=== PATIENT | female | born 1985 | race Caucasian/White ===

== ENCOUNTER → 2016-09-14 | Outpatient (CLI) | payer OTHER ==
[~2016-09-14] MED LIST: LEXAPRO10 MG PO; MACROBID100 M1 PO; MOTRIN800 MG PO; PERCOCET 325 MG1 TA2 PO
== END | disposition home or self-care (01) ==
LOC: LAB 16:01
DX: R10.11 Right upper quadrant pain (principal)

== ENCOUNTER → 2016-09-30 | Outpatient (CLI) | payer OTHER | END | disposition home or self-care (01) | LOC: US 09-23 10:00 | DX: R10.11 Right upper quadrant pain (principal) ==

== ENCOUNTER → 2017-05-16 | Outpatient (CLI) | payer OTHER | END | disposition home or self-care (01) | LOC: RAD 10:10 | DX: J20.9 Acute bronchitis, unspecified (principal) ==

== ENCOUNTER 2018-03-08 19:55 | Emergency (ER) | payer OTHER ==
[~2018-03-08] VITALS: Ht 165.1 cm; Wt 99.8 kg
[2018-03-08] MEDS ORDERED: VITAMIN D400 I1 PO (20:00)
[2018-03-08] MEDS ORDERED: Motrin,Rufen800 MG PO (22:17)
[2018-03-08] MEDS ORDERED: CYCLOBENZAPRINE5 M3 PO (22:17)
== END 2018-03-08 22:19 | disposition home or self-care (01) ==
LOC: ED 19:55
DX: S16.1XXA Strain of muscle, fascia and tendon at neck level, initial encounter (principal); S46.912A Strain of unspecified muscle, fascia and tendon at shoulder and upper arm level, left arm, initial encounter; S50.312A Abrasion of left elbow, initial encounter; R51 Headache; F17.200 Nicotine dependence, unspecified, uncomplicated; Z79.899 Other long term (current) drug therapy; V89.2XXA Person injured in unspecified motor-vehicle accident, traffic, initial encounter; Y93.I9 Activity, other involving external motion; Y92.488 Other paved roadways as the place of occurrence of the external cause; Y99.8 Other external cause status

== ENCOUNTER → 2018-03-15 | Outpatient (CLI) | payer OTHER ==
[~2018-03-15] MED LIST changes: +CYCLOBENZAPRINE5 M3 PO; +Motrin,Rufen800 MG PO; +VITAMIN D400 I1 PO
== END | disposition home or self-care (01) ==
LOC: US 15:42
DX: R10.2 Pelvic and perineal pain (principal)

== ENCOUNTER → 2022-04-14 | Outpatient (CLI) | payer OTHER | END | disposition home or self-care (01) | LOC: RAD 09:44 | PROVIDERS: ATTEND Chiropractor | DX: M16.11 Unilateral primary osteoarthritis, right hip (principal); M25.751 Osteophyte, right hip; M54.50 Low back pain, unspecified ==